=== PATIENT | male | born 2000 | race Caucasian/White ===

== ENCOUNTER 2025-06-14 18:53 | Emergency (ER) | payer SELFPAY ==
[2025-06-14 19:03] VITALS: BP 147/83
[2025-06-14] MEDS: MAALOX 50 PO (20:06)
[2025-06-14 20:20] LABS: Hematocrit 42.9 % (39.0-52.0); Hemoglobin 14.0 g/dL (13.0-18.0); Mean Corp Hgb Conc. 32.6 g/dL (33.0-37.0); Mean Corpuscular Volume 85.1 fL (80.0-94.0); Nucleated Red Blood Cells % 0 % (-); Platelet Count 191 10^3/uL (130-400); Red Cell Dist. Width 13.0 % (11.5-14.5)
[2025-06-14 20:46] LABS: Blood Urea Nitrogen 23 mg/dl (9-20); Calcium 9.3 mg/dl (8.4-10.2); Carbon Dioxide 27 mmol/L (22-30); Chloride 101 mmol/L (98-107); Glucose 127 mg/dl (70-99); Lipase 39 U/L (23-300); Sodium 138 mmol/L (135-145); eGFR > 60.00
[2025-06-14 20:52] VITALS: BP 152/87
[2025-06-14 20:54] VITALS: BMI 56.1
[2025-06-14 20:54] LABS: Troponin I < 0.012 ng/ml
[2025-06-14] MEDS: DILAUDID 1 MG IV (20:58)
[2025-06-14] MEDS: ZOFRAN 4 MG IV (20:58)
--- NOTE | 2025-06-14 20:58 | ED.GENMED ---
History of Present Illness
General
Chief Complaint: Abdominal Pain
Source: patient
Exam Limitations: none
Time Seen by Provider: 06/14/25 20:55
Nursing documentation reviewed up to this point in time: agreed with
History of Present Illness
History of Present Illness:
The patient is a 25-year-old man who has a history of a chronic umbilical hernia complains of severe abdominal pain radiating into his chest and his upper back. Patient reports symptoms started at 3 PM today and have been constant. Patient reports
a lot of belching. He reports he had a bowel movement earlier today that was small. Patient feels as though he may be constipated. He denies nausea and vomiting. He denies fevers and chills.
Past History
Past History
ED Past Medical History: Hypercholesterolemia
ED Past Surgical History: Tonsilectomy
Social History
Tobacco: Non-smoker
Alcohol: Other
Drug: None
Personal: Single
Living: other
Employment: Employed
Family History
Family History: Other
Review of Systems
Review of Systems
Allergies reviewed?: Yes
All Other Systems: ROS reviewed and negative except as documented in HPI and ROS
Constitutional: Reports no symptoms
EENT: Reports no symptoms
Respiratory: Reports no symptoms
Cardiac: Reports no symptoms
ABD/GI: Reports abdominal pain and constipated
: Reports no symptoms
Musculoskeletal: Reports no symptoms
Skin: Reports no symptoms
Neurological: Reports no symptoms
Endocrine: Reports no symptoms
Hematologic/Lymphatic: Reports no symptoms
Psychiatric: Reports no symptoms
Phy Exam
Physical Exam
Physical Exam:
Physical Exam
General: Patient appears uncomfortable but nontoxic
Neck: supple. no meningeal signs. normal psoterior pharynx
Heart: s1/s2 regular rate and rhythm, no murmur. equal radial pulses.
Lungs: no acute respiratory distress. clear bilaterally
Abdomen: normal bowel sounds. Soft umbilical hernia that is reducible. Mild diffuse abdominal tenderness. No rebound or guarding. No pulsatile mass
Neuro: alert and oriented. no focal neurological deficits
Skin: no rash
Psychiatric: well kept. interactive and cooperative
Extremities: no edema. no calf tenderness. negative homans. good distal pulses
Course
Orders/Labs/Results
Orders:
Orders
06/14/25 18:54
Electrocardiogram (*1) Urgent
Reason for Study: Abdominal Pain
EKG- Treatment ONCE
06/14/25 20:04
Mag Hydrox/Al Hydrox/Simeth [Maalox] 30 ml .ROUTE .STK-MED ONE
Phenobarb/Hyoscy/Atropine/Scop [] 10 ml .ROUTE .STK-MED ONE
Viscous Lidocaine 2% [Xylocaine Viscous Cup] 15 ml .ROUTE .STK-MED ONE
06/14/25 20:06
Mag Hydrox/Al Hydrox/Simeth [Maalox] 30 ml Phenobarb/Hyoscy/Atropine/Scop [] 10 ml Viscous Lidocaine 2% [Xylocaine Viscous Cup] 10 ml PO NOW
06/14/25 20:12
Basic Metabolic Panel Urgent
Complete Blood Count/With Diff Urgent
Lipase Urgent
Troponin I Urgent
06/14/25 20:55
HYDROmorphone [Dilaudid] 1 mg IV NOW STA
Ondansetron Injectable [Zofran] 4 mg IV NOW STA
06/14/25 20:56
CT Chest/abd/pelvis Angio W/wo Stat
Comment:
Reason For Exam: severe back and ab pain
HYDROmorphone [Dilaudid] 1 mg .ROUTE .STK-MED ONE
Ondansetron Injectable [Zofran] 4 mg .ROUTE .STK-MED ONE
06/14/25 20:57
Ondansetron Injectable [Zofran] 4 mg IV NOW STA
06/14/25 21:47
HYDROmorphone [Dilaudid] 0.5 mg IV NOW STA
06/14/25 22:28
Magnesium Citrate [Citroma] 300 ml PO ONCE ONE
06/14/25 23:06
Lactic Acid Urgent
06/15/25 01:59
Magnesium Citrate [Citroma] 300 ml PO ONCE ONE
Abnormal Lab Results
06/14/25
20:12
WBC 12.9 H 10^3/uL
(4.8-10.8)
MCHC 32.6 L g/dL
(33.0-37.0)
MPV 11.3 H fL
(7.4-10.4)
Absolute Neuts (auto) 10.3 H 10^3/uL
(1.4-6.5)
Neutrophils % 80.3 H %
(42.2-75.2)
Lymphocytes % 14.2 L %
(20.5-51.1)
BUN 23 H mg/dl
(9-20)
Glucose 127 H mg/dl
(70-99)
06/14/25 20:12
06/14/25 20:12
Vital Signs
Initial and Last Documented VS:
Initial Vital Signs
Temp Pulse Resp BP Pulse Ox
98.7 F 63 18 147/83 98
06/14/25 19:03 06/14/25 19:03 06/14/25 19:03 06/14/25 19:03 06/14/25 19:03
Last Documented Vital Signs
Temp Pulse Resp BP Pulse Ox
98.7 F 53 23 138/66 94
06/14/25 19:03 06/15/25 01:00 06/15/25 01:00 06/15/25 01:00 06/15/25 01:00
MDM/Problems Addressed
Differential Diagnosis Includes:
Acute constipation, small bowel obstruction, incarcerated hernia
MDM/Problems Addressed:
Patient presents with acute abdominal pain and constipation
Chronic conditions affecting care:
Umbilical hernia
Acute Exacerbation and/or Progression of Chronic Illness:
Umbilical hernia does feel soft and reducible on abdominal exam
*Radiology
Radiology exam reviewed: radiology read reviewed
*Pulse Oximetry
SaO2: 100
Oxygen Mode of Delivery: Room air
Patient hypoxic: no
*EKG
Interpreted by ED Provider?: Yes
Interpretation: abnormal
Comparison EKG: no comparison EKG present
Rate: bradycardiac
Rhythm: sinus
[place]: normal axis
Interval: normal interval
QRS Pattern: normal QRS
Ischemia: non-specific ST changes
*Deck Mate Interpretation
Rate: bradycardiac
Interpretation: normal
Rhythm: sinus
*Critical Care Note
Total Time (30-74mins, 75-104mins- exclusive of procedures): Not Applicable
Data Reviewed
Source: patient
Patient Management
Social determinants of health affecting care: Living situation and Strong social support
Update Note
Update Note:
1:30 AM patient states he is more comfortable. States his pain is much less but he has not yet had a bowel movement.
2:00 AM patient ordered another dose of mag citrate. Remains afebrile without any nausea or vomiting. Still reports that his pain is much improved
ED Attending Note
-
Portions of this chart may have been created with voice recognition software.� Occasional wrong word or��sound alike� substitutions may have occurred due to the inherent limitations of voice recognition software.
Discharge Plan
Departure
Referrals:
UNKNOWN - PT DOES,NOT KNOW [Family Provider]
Interventions
Interventions:
*Risk Screen - Suicide Last Done: 06/14/25 19:03
*General Assessment Last Done: 06/14/25 19:03
*Neglect/Abuse Screening Last Done: 06/14/25 20:53
*ED- Fall Risk Assessment Last Done: 06/14/25 19:03
*ED COVID-19 Vaccine History Last Done: 06/14/25 19:03
*ED Influenza Vaccine History Last Done: 06/14/25 19:03
ME-Wrvjou-Kcvhipsjkr Assessment Last Done: 06/14/25 20:53
Discharge Date and Time
Print Language: GREEK
[2025-06-14 21:00] VITALS: BP 151/78
[2025-06-14] MEDS: DILAUDID 0.5 MG IV (21:56)
[2025-06-14 23:00] VITALS: BP 137/87
[2025-06-14] MEDS: CITROMA 300 ML PO (23:07)
[2025-06-15 00:19] VITALS: BP 146/76
[2025-06-15 01:00] VITALS: BP 138/66
[2025-06-15] MEDS: CITROMA 300 ML PO (02:04)
[2025-06-15 06:40] VITALS: BP 135/67
== END 2025-06-15 06:40 | disposition home or self-care (01) ==
LOC: EMR 18:53
PROVIDERS: Student in an Organized Health Care Education/Training Program; EMERGENCY PHYSICIAN Emergency Medicine
DX: R10.9 Unspecified abdominal pain (principal); K59.00 Constipation, unspecified; K42.9 Umbilical hernia without obstruction or gangrene; E78.00 Pure hypercholesterolemia, unspecified
CPT/HCPCS: 99284; 96374; 96375; 96376; 71275; 74174; 80048; 83605; 83690; 84484; 85025; 93005; Q9967